=== PATIENT | male | born 1975 | race Caucasian/White ===

== ENCOUNTER 2016-11-12 20:05 | Emergency (ER) | payer BC, OTHER ==
[~2016-11-12] VITALS: Ht 182.9 cm; Wt 103.1 kg
[~2016-11-12 20:05] MED LIST: DPTSTI200 INJ; LXP10 PO; OMEG10007 PO; VITAMIN B12 PO
[2016-11-12 20:07] VITALS: TEMP 36.7; Ht 182.9 cm; Wt 103.1 kg
[2016-11-12] MEDS ORDERED: SODIUM CHLORIDE 0.9% 1000ML 1,000 ML IV STA (20:23)
[2016-11-12] MEDS ORDERED: MoRPHine SULFATE 4 MG/ML 1 ML CARP\\VIAL IV STA ×2 (20:23→22:01)
[2016-11-12] MEDS ORDERED: SODIUM CHLORIDE 0.9% 1000ML 1,000 ML IV ONE (20:23)
[2016-11-12] MEDS ORDERED: ONDANSETRON INJ 2 MG/ML 2 ML VIAL IV STA (20:23)
[2016-11-12 20:36] LABS: URINE APPEARANCE CLEAR (CLEAR); URINE BILIRUBIN NEG (NEG); URINE NITRITE NEG (NEG); URINE SPECIFIC GRAVITY 1.017 (1.000-1.030); UROBILINOGEN NEG (NEG)
[2016-11-12 20:46] LABS: BASO % 0.3 %; BASO ABS # 0.02 K/uL (0-0.2); COMPLETE YES; EOS % 6.8 %; IG% 0.2 %; LYMPH ABS # 2.31 K/uL (1.2-3.4); MEAN CELL VOLUME 82.7 fL (80-100); MEAN CORPUSCULAR HEMOGLOBIN 28.1 pg (25-34); MONO % 6.7 %; PLATELET COUNT 200 K/uL (130-400); RED BLOOD COUNT 5.08 M/uL (4.7-6.1)
[2016-11-12 20:49] LABS: MANUAL MICROSCOPIC REQUIRED? NO; REVIEW REQ? NO; URINE COLOR DK YELLOW
--- NOTE | 2016-11-12 20:55 | EMERGENCY ROOM VISIT NOTE ---
History Report prepared by Colleen: Giacomo Lizarraga Under the Supervision of: Dr. Mckinley Desouza M.D. First contact with patient: 20:09 Chief Complaint: FLANK PAIN Stated Complaint: R SIDE PAIN AND BLOOD IN URINE History of Present Illness The patient is a 41 year old male who presents to the Emergency Room with complaints of constant, worsening, right-sided abdominal pain beginning 5 days ago. He currently rates his discomfort a 10/10 in severity. The patient states that his pain radiates to his lower back, but is worse in his abdomen. He states that his urine has gross amounts of blood in it, but he denies dysuria. The patient also denies trauma, testicular pain, and pain with walking. He reports that he has a history of kidney stones, and this feels different. The patient notes that he can typically pass them, and his pain starts in his back first, not abdomen. He reports that he passed a kidney stone six months ago. The patient states that he still has his appendix, and denies a history of hypertension. 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 Source of History: patient, spouse/significant other Onset: 5 days ago Position: abdomen (right side) Symptom Intensity: 10/10 Timing: constant, worsening Associated Symptoms: + back pain Note: Associated symptoms: gross amounts of blood in urine Denies dysuria, trauma, testicular pain, and pain with walking. Review of Systems See HPI for pertinent positives & negatives. A total of 10 systems reviewed and were otherwise negative. Past Medical & Surgical Medical Problems: (1) Calculus Of Ureter Old medical records were reviewed. Nurse's notes were reviewed and I agree with. Family History Patient reports no known family medical history. Social History Smoking Status: Never Smoker Alcohol Use: occasionally Marital Status: Housing Status: lives with family Current/Historical Medications Scheduled Tamsulosin Hcl (Flomax), 0.4 MG PO QD Scheduled PRN Oxycodone Immediate Rel Tab (Roxicodone Ir), 1-2 TAB PO Q4H PRN for Severe Pain Allergies Coded Allergies: Rofecoxib (Verified Allergy, Severe, THROAT SWELLS, 02/15/14) Ketorolac (Verified Adverse Reaction, Mild, NAUSEA, VOMITING, 02/15/14) Physical Exam Vital Signs Date Time Temp Pulse Resp B/P (MAP) Pulse Ox O2 Delivery O2 Flow Rate FiO2 11/12/16 23:22 58 18 106/63 97 11/12/16 21:44 56 16 127/72 98 Room Air 11/12/16 20:07 36.7 62 18 148/96 100 Room Air Physical Exam General: Well developed well nourished in no acute distress, breathing comfortably on room air. Normal speech HEENT: Normal cephalic atraumatic. Pupils are equal round and reactive to light. Sclerae anicteric. Extraocular movements are intact. Oropharynx is pink with moist mucous membranes. No swelling of the mouth lips or tongue. Neck: Supple with a midline trachea. No meningeal signs or stiffness, no JVD or bruits. No Stridor. Chest: Clear to auscultation bilaterally. No wheezes or rhonchi. No increased work of breathing. Heart: regular rate and rhythm. Abdomen: Soft, nondistended without rebound guarding or rigidity. Right lower quadrant tenderness to palpation Extremities: No cyanosis clubbing or edema. No calf tenderness or assymetry Spine/Back. Non tender to palpation. No CVA tenderness Skin: Good turgor without rashes. Neurologic exam: Cranial nerves two through 12 are intact. Motor and sensation are intact and symmetrical throughout. Medical Decision & Procedures ER Provider Diagnostic Interpretation: CT results as stated below per my review and radiologist interpretation: ABDOMEN AND PELVIS CT WITHOUT CONTRAST CT DOSE: 1470.02 mGy.cm HISTORY: Flank pain eval for stone, appy TECHNIQUE: Multiaxial CT images of the abdomen and pelvis were performed without the use of intravenous and oral contrast according to the standard department stone protocol. COMPARISON STUDY: 08/15/2011. FINDINGS: liver spleen and pancreas appear unremarkable. Left kidney demonstrates several nonobstructing calcifications. Right kidney also similar to show several nonobstructing calcifications. There is mild right hydroureteronephrosis. There is a 5 mm obstructing calculus at the distal right ureteral level at approximately level of the mid sacrum. There are components of chronic sigmoid diverticulosis. There is no evidence for acute diverticulitis. Bowel pattern is considered nonobstructive. IMPRESSION: 1. Obstructing calculus distal right ureter measuring 5 mm. 2. This is at the approximate level of the mid sacrum. 3. Several additional nonobstructing renal calcifications bilaterally. 4. Chronic sigmoid diverticulosis. Electronically signed by: Young Fernandez M.D. 11/12/2016 9:28 PM Dictated Date/Time: 11/12/2016 9:24 PM Laboratory Results 11/12/16 20:32 Red Blood Count 5.08, Mean Corpuscular Volume 82.7, Mean Corpuscular Hemoglobin 28.1, Mean Corpuscular Hemoglobin Concent 34.0, Mean Platelet Volume 11.0, Neutrophils (%) (Auto) 51.0, Lymphocytes (%) (Auto) 35.0, Monocytes (%) (Auto) 6.7, Eosinophils (%) (Auto) 6.8, Basophils (%) (Auto) 0.3, Neutrophils # (Auto) 3.37, Lymphocytes # (Auto) 2.31, Monocytes # (Auto) 0.44, Eosinophils # (Auto) 0.45, Basophils # (Auto) 0.02 11/12/16 20:32 Test 11/12/16 20:20 11/12/16 20:32 Urine Color DK YELLOW Urine Appearance CLEAR (CLEAR) Urine pH 6.0 (4.5-7.5) Urine Specific [place] 1.017 (1.000-1.030) Urine Protein NEG (NEG) Urine Glucose (UA) NEG (NEG) Urine Ketones NEG (NEG) Urine Occult Blood 3+ (NEG) Urine Nitrite NEG (NEG) Urine Bilirubin NEG (NEG) Urine Urobilinogen NEG (NEG) Urine Leukocyte Esterase SMALL (NEG) Urine WBC (Auto) 5-10 /hpf (0-5) Urine RBC (Auto) >30 /hpf (0-4) Urine Hyaline Casts (Auto) 1-5 /lpf (0-5) Urine Epithelial Cells (Auto) 10-20 /lpf (0-5) Urine Bacteria (Auto) NEG (NEG) White Blood Count 6.60 K/uL (4.8-10.8) Red Blood Count 5.08 M/uL (4.7-6.1) Hemoglobin 14.3 g/dL (14.0-18.0) Hematocrit 42.0 % (42-52) Mean Corpuscular Volume 82.7 fL (80-100) Mean Corpuscular Hemoglobin 28.1 pg (25-34) Mean Corpuscular Hemoglobin Concent 34.0 g/dl (32-36) Platelet Count 200 K/uL (130-400) Mean Platelet Volume 11.0 fL (7.4-10.4) Neutrophils (%) (Auto) 51.0 % Lymphocytes (%) (Auto) 35.0 % Monocytes (%) (Auto) 6.7 % Eosinophils (%) (Auto) 6.8 % Basophils (%) (Auto) 0.3 % Neutrophils # (Auto) 3.37 K/uL (1.4-6.5) Lymphocytes # (Auto) 2.31 K/uL (1.2-3.4) Monocytes # (Auto) 0.44 K/uL (0.11-0.59) Eosinophils # (Auto) 0.45 K/uL (0-0.5) Basophils # (Auto) 0.02 K/uL (0-0.2) RDW Standard Deviation 37.5 fL (36.4-46.3) RDW Coefficient of Variation 12.5 % (11.5-14.5) Immature Granulocyte % (Auto) 0.2 % Immature Granulocyte # (Auto) 0.01 K/uL (0.00-0.02) Anion Gap 9.0 mmol/L (3-11) Est Creatinine Clear Calc Drug Dose 107.5 ml/min Estimated GFR () 94.8 Estimated GFR (Non- 81.8 BUN/Creatinine Ratio 18.7 (10-20) Calcium Level 8.5 mg/dl (8.5-10.1) Total Bilirubin 0.4 mg/dl (0.2-1) Direct Bilirubin 0.1 mg/dl (0-0.2) Aspartate Amino Transf (AST/SGOT) 18 U/L (15-37) Alanine Aminotransferase (ALT/SGPT) 20 U/L (12-78) Alkaline Phosphatase 45 U/L (45-117) Total Protein 6.6 gm/dl (6.4-8.2) Albumin 3.5 gm/dl (3.4-5.0) Lipase 187 U/L (73-393) Laboratory studies as stated above per my review. Medications Administered Medications (Trade) Dose Ordered Sig/Babatunde Route Start Time Stop Time Status Last Admin Dose Admin Sodium Chloride 1,000 ml @ 999 mls/hr Q1H1M STAT IV 11/12/16 20:23 11/12/16 21:23 DC 11/12/16 20:35 999 MLS/HR Sodium Chloride 1,000 ml @ 200 mls/hr Q5H ONCE IV 11/12/16 20:23 11/12/16 23:57 DC 11/12/16 20:23 200 MLS/HR Morphine Sulfate (MoRPHine SULFATE INJ) 4 mg NOW STAT IV 11/12/16 20:23 11/12/16 20:24 DC 11/12/16 20:35 4 MG Ondansetron HCl (Zofran Inj) 4 mg NOW STAT IV 11/12/16 20:23 11/12/16 20:24 DC 11/12/16 20:35 4 MG Morphine Sulfate (MoRPHine SULFATE INJ) 4 mg NOW STAT IV 11/12/16 22:01 11/12/16 22:02 DC 11/12/16 22:08 4 MG Tamsulosin HCl (Flomax Cap) 0.4 mg NOW ONCE PO 11/12/16 22:15 11/12/16 22:16 DC 11/12/16 22:08 0.4 MG ED Course 2020: Past medical records reviewed. The patient was evaluated in room C11B, and a complete history and physical examination were performed. 2022: Ordered Zofran Inj 4mg IV, Morphine Sulfate 4mg IV, Sodium Chloride 1000 ml @ 200 mls/hr IV, Sodium Chloride 1000 ml @ 999 mls/hr IV 0: I reevaluated the patient and informed him of his exam findings. 2200: Ordered Morphine Sulfate 4mg IV 3: I reevaluated the patient. He would like one more dose of pain medication before going home. 5: Ordered Oxycodone HCl 1 homepack PO, Flomax Cap 0.4mg PO 2300: Upon reevaluation, the patient is resting and in no distress. I discussed the new results and treatment plan with him. He verbalized agreement of the treatment plan. The patient will be discharged home when he receives his medication. 0: Ordered Oxycodone 1 homepack PO, Flomax Cap 0.4mg PO Medical Decision Differential diagnosis includes: kidney stones, UTI, appendicitis, electrolyte metabolic abnormality, infection Medication Reconciliation: I attest that I have personally reviewed the patient' s current medication list. Blood Pressure Screening: Patient was found to have a slightly elevated blood pressure due to circumstances. I do not believe that the patient requires hypertension monitoring. This patient comes in as described above. He's been having pain on the right side of the abdomen. He has kidney stones a feels like this is different although he does have blood in his urine. He denies any trauma. He's had no fever or chills. IV access established and hydrated with IV normal saline. He was given morphine 4 mg IV and Zofran 4 mg IV. This helped but he did require additional 4 mg morphine IV. He was resting comfortably after this. Urinalysis shows blood but no definite infection and is a suboptimal specimen. He has no acute electrolyte or metabolic abnormalities. CAT scan shows a 5 mm distal stone with some hydro. No other acute abnormality seen. He should rest and drink plenty of fluids and follow-up with his urologist. He was given Flomax. And will go home with Flomax. He can also use for pain ibuprofen 400 mg every 6 hours he has done well with this before. For breakthrough pain use OxyIR 5 mg, one or 2 pills every 4-6 hours as needed. He was warned that OxyIR could make him drowsy do not take before drinking, driving, working. The patient and his were happy with the plan he was discharged to home. Impression Primary Impression: Kidney stone Additional Impressions: Right flank pain Right sided abdominal pain Scribe Attestation The scribe's documentation has been prepared under my direction and personally reviewed by me in its entirety. I confirm that the note above accurately reflects all work, treatment, procedures, and medical decision making performed by me. Departure Information Dispostion Home / Self-Care Prescriptions Tamsulosin Hcl (FLOMAX) 0.4 Mg Cap 0.4 MG PO QD, #14 CAP Prov: Mckinley Desouza M.D. 11/12/16 Oxycodone Immediate Rel Tab (ROXICODONE IR) 5 Mg Tab 1-2 TAB PO Q4H Y for Severe Pain, #24 TAB Prov: Mckinley Desouza M.D. 11/12/16 Referrals Christiane Valdez D.O. (PCP) Forms HOME CARE DOCUMENTATION FORM, IMPORTANT VISIT INFORMATION Patient Instructions My [facility] Additional Instructions Rest Drink plenty of fluids Use ibuprofen 400 mg every 6 hours, take with food For breakthrough pain, may use OxyIR 5 mg, one or 2 pills every 4-6 hours as needed OxyIR may make you drowsy and do not take before drinking, driving, working. Use Flomax once a day. Return if: Increasing pain, worsening of symptoms, fever or chills, any new problems or concerns Follow-up with your doctor or urologist Dr. Rai on Monday for recheck or return over the weekend if symptoms worsen Problem Qualifiers
[2016-11-12 21:02] LABS: BUN/CREATININE RATIO 18.7 (10-20); CREATININE 1.1 mg/dl (0.60-1.40)
--- NOTE | 2016-11-12 21:29 | DIAGNOSTIC IMAGING REPORT ---
ABDOMEN AND PELVIS CT WITHOUT CONTRAST CT DOSE: 1470.02 mGy.cm HISTORY: Flank pain eval for stone, appy TECHNIQUE: Multiaxial CT images of the abdomen and pelvis were performed without the use of intravenous and oral contrast according to the standard department stone protocol. COMPARISON STUDY: 08/15/2011. FINDINGS: liver spleen and pancreas appear unremarkable. Left kidney demonstrates several nonobstructing calcifications. Right kidney also similar to show several nonobstructing calcifications. There is mild right hydroureteronephrosis. There is a 5 mm obstructing calculus at the distal right ureteral level at approximately level of the mid sacrum. There are components of chronic sigmoid diverticulosis. There is no evidence for acute diverticulitis. Bowel pattern is considered nonobstructive. IMPRESSION: 1. Obstructing calculus distal right ureter measuring 5 mm. 2. This is at the approximate level of the mid sacrum. 3. Several additional nonobstructing renal calcifications bilaterally. 4. Chronic sigmoid diverticulosis. Electronically signed by: Young Fernandez M.D. 11/12/2016 9:28 PM Dictated Date/Time: 11/12/2016 9:24 PM
[2016-11-12 22:15] LABS: CALCIUM 8.5 mg/dl (8.5-10.1)
[2016-11-12] MEDS ORDERED: TAMSULOSIN HCL 0.4 MG CAP PO ONE ×2 (22:15→23:30)
[2016-11-12] MEDS ORDERED: OXYCODONE IR HOME PACK PO ONE ×2 (22:15→23:30)
[2016-11-12] MEDS ORDERED: TAMS0.4C38 PO (22:21)
[2016-11-12] MEDS ORDERED: OXYC1TAB3 PO (22:21)
[2016-11-12 23:22] VITALS: BP 106/63; PULSE 58; O2SAT 97
== END 2016-11-12 23:19 | disposition home or self-care (01) ==
LOC: C.EDB 20:06 → C.EDC 23:19
DX: N20.0 Calculus of kidney (principal); R10.84 Generalized abdominal pain

== ENCOUNTER 2024-04-22 09:01 | Observation (INO) ==
--- NOTE | 2024-04-22 09:33 | Emergency Department Note ---
Impression & Plan Acute pain of left foot ED Provider Note ED Provider Note NAME: FIDELIA REYES Jr AGE:48 SEX: Male : 1975 ARRIVES VIA: Private vehicle INFORMANT: Patient ED PROVIDER(s): Amber Casiano DO CHIEF COMPLAINT: Worsening pain of the left foot/great toe HPI: This is a 48-year-old male presents emergency department due to concern for worsening pain of the left foot particularly in the area of the first MTP. Patient states he had been having intermittent pain for approximately a month however has been slowly getting worse particularly over the last 1 to 2 weeks. He was initially seen at [facility] and underwent an x-ray and there was some suspicion for possible gout. He was started on prednisone at 80 mg. He states the steroids did not help. He is otherwise been taking Tylenol and ibuprofen [id number]. He was seen here on Monday and underwent CT of the foot as well as labs. They state he was tested for Lyme additionally. No history of rheumatologic disorders. No recent trauma or injury. He denies any other joint pains. He denies fevers or chills. On Monday they were given oxycodone additionally instructed to follow-up with orthopedics. They state they presented to the [facility] walk-in orthopedic clinic this morning and were dismissed by the PA that they saw so they came back here. Patient complains of accompanying paresthesias in the left foot. They state many years ago the right foot was aspirated due to suspicion of gout and was negative for crystals. PAST MEDICAL HISTORY:See Below PAST SURGICAL HISTORY:See Below FAMILY HISTORY:See Below SOCIAL HISTORY:See Below HOME MEDICATIONS:See Below ALLERGIES:See Below VITALS:See Below PHYSICAL EXAMINATION: GENERAL: alert, well appearing, well nourished, no distress, non-toxic EYE EXAM: normal conjunctiva, PERRL and EOM's grossly intact OROPHARYNX: no exudate, no erythema, lips, buccal mucosa, and tongue normal and mucous membranes are moist NECK: supple, no nuchal rigidity, no adenopathy, non-tender LUNGS: Clear to auscultation. Normal chest wall mechanics, no w/r/r HEART: no murmurs, S1 normal and S2 normal ABDOMEN: abdomen soft, non-tender, normo-active bowel sounds, no masses, no rebound or guarding. BACK: Back is symmetrical on inspection and there is no deformity, no midline tenderness, no CVA tenderness. SKIN: no rashes, petechiae, orbruising UPPER EXTREMITIES: upper extremities are grossly normal. FROM, nml pulses b/l. LOWER EXTREMITIES: No pitting edema. FROM, nml pulses b/l. Left first MTP edematous with mild overlying erythema, markedly tender to even light touch, edema noted to the plantar aspect of the foot additionally. NEURO EXAM: Normal sensorium, cranial nerves II-XII grossly intact, normal speech, no facial droop,nogross weakness of arms, no gross weakness of legs. Gross sensation intact. No ataxia. Vital Signs: reviewed and remarkable Differential Diagnosis: Trauma, septic arthritis, tickborne illness, gout, pseudogout, gonorrhea, arthritis, as well as others were considered MEDICAL DECISION MAKING: This is a 48-year-old male presents emergency department due to worsening left foot pain. Patient seen and evaluated previously both at [facility] as well as at at our facility a few days ago. He was afebrile and vital signs stable. He has been using multiple medications for pain at home without any relief. Labs drawn and sent, IV established, patient monitored on telemetry. He was given IV Tylenol and IV morphine with some improvement. Repeat x-rays and CT not performed as these were just done within the last few days. Uric acid was noted to be slightly elevated. On review of prior records, he does have a prior notation of gout from his PCP and previously elevated uric acid levels. He is not currently taking any gout medication. He did take prednisone last week without any improvement. Mild overlying erythema at the first MTP on the left foot was outlined with a sterile marking pen as a precaution. No leukocytosis or elevation of the other inflammatory markers noted. I do not suspect septic arthritis. I do not suspect occult trauma. I think gouty arthropathy more likely. I do not feel pain is from previously noted subchondral bone cyst from the CT several days ago. Given persistent uncontrolled pain and failure of outpatient management, case discussed with the hospitalist team for additional evaluation and management and likely specialist consultation. Patient was given first dose of colchicine in the emergency department. Consultation(s): 1218: Discussed with Jazmine Fuentes hospitalist team, for additional evaluation and management. ER Treatment Provided: See below Diagnostics Interpreted By Me: -Cardiac Monitoring: An order was placed for continuous cardiac monitoring. The monitor shows a rate of 62 with normal sinus rhythm. -Laboratory studies: As stated above and show below. 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 (Acute) Obstructive sleep apnea Nocturnal hypoxemia Obesity Gout Medical History (Updated 04/22/24 @ 12:30 by Montserrat Lazar PA-C) Nephrolithiasis Hyperuricemia History of COVID-19 DX'D EARLY 07/2020 DR HOOD'S OFFICE [facility]-FATIGUE, SOB, SLIGHT FEVER-RECOVERED AT HOME-SYNPTOMS RESOLVED Sleep apnea CPAP Hyperlipidemia HX BORDERLINE-VOLUNTARY WT LOSS 60 LBS OVER PAST 6 MONTHS Undiagnosed cardiac murmurs PALPITATIONS NO CARDIOLOGY Panic disorder Hypogonadism in male EMIL (generalized anxiety disorder) Recurrent major depression in full remission Surgical History (Updated 04/22/24 @ 12:30 by Montserrat Lazar PA-C) Status post arthroscopy of knee Right and Left knee History of anesthesia reaction GETS AGGRESSIVE WAKING UP-MOVES AROUND ALOT History of lithotripsy History of removal of testicle Left testicle removed S/P INJURY Family History Father Diabetes Heart disease Hypertension Kidney stones Other COPD (chronic obstructive pulmonary disease) Cancer Myocardial infarction Social History Smoking Status: Never smoker Tobacco Type: Cigarettes Second Hand Exposure: Yes; Do You Dip or Chew Tobacco: Yes (1 CAN PER 2 DAYS); Hx Alcohol Use: Yes Alcohol type: hard liquor Hx Substance Use: No Preferred Language: Sami Communication Ability: Effective Throw Out Clerk Required: No Beliefs That Will Affect Care: None marital status: Current Living Situation: Spouse current occupational status: employed current occupation: [employer] Other Information That Helps Us Care for You: No Feels Safe at Home: Yes Safety Concerns: Feels Safe At This Time Diet: regular Assistive Devices: Cane and Oxygen - at Night Allergies Allergies Allergy/AdvReac Type Severity Reaction Status Date / Time rofecoxib Allergy Severe THROAT Verified 10/25/23 08:21 SWELLS ketorolac AdvReac Mild NAUSEA, Verified 10/25/23 08:21 VOMITING Home Meds Home Medications Medication Instructions Recorded Confirmed oxycodone 5 mg tablet 5 mg PO Q4H PRN Pain 04/22/24 04/22/24 Results & Data (ED) Vital Signs Vital Signs - 24 hr 04/22/24 09:07 04/22/24 09:58 04/22/24 10:30 Temperature 36.3 C L Temperature Source Oral Pulse Rate 68 65 58 L Pulse Rate [Apical] Pulse Rate from SpO2 Sensor 58 L Pulse Rhythm [Apical] Pulse Strength [Apical] Respiratory Rate 20 13 Respiratory Effort / Characteristics Non-Labored Spontaneous Respiratory Depth Normal Respiratory Pattern Regular Blood Pressure 169/106 H 119/65 Blood Pressure [Left Arm] Blood Pressure Mean 127 72 Blood Pressure Mean [Left Arm] Pulse Oximetry 99 99 Oxygen Delivery Method Room Air Nasal Cannula Oxygen Flow Rate 2 Sepsis Recent Fever Within 48 Hours No Sepsis New/Unexplained Change in Mental Status N/A Sepsis Action Taken by Nursing No Action Required 04/22/24 11:01 04/22/24 12:30 04/22/24 12:30 Temperature Temperature Source Pulse Rate 60 54 L Pulse Rate [Apical] 62 Pulse Rate from SpO2 Sensor 61 53 L Pulse Rhythm [Apical] Regular Pulse Strength [Apical] Normal Respiratory Rate 14 16 18 Respiratory Effort / Characteristics Non-Labored Respiratory Depth Normal Respiratory Pattern Regular Blood Pressure 143/98 H 127/81 Blood Pressure [Left Arm] 127/81 Blood Pressure Mean 103 85 Blood Pressure Mean [Left Arm] 96 Pulse Oximetry 99 99 100 Oxygen Delivery Method Nasal Cannula Nasal Cannula Nasal Cannula Oxygen Flow Rate 2 2 2 Sepsis Recent Fever Within 48 Hours Sepsis New/Unexplained Change in Mental Status Sepsis Action Taken by Nursing 04/22/24 13:00 Temperature Temperature Source Pulse Rate 52 L Pulse Rate [Apical] Pulse Rate from SpO2 Sensor 52 L Pulse Rhythm [Apical] Pulse Strength [Apical] Respiratory Rate 13 Respiratory Effort / Characteristics Respiratory Depth Respiratory Pattern Blood Pressure 126/87 Blood Pressure [Left Arm] Blood Pressure Mean 96 Blood Pressure Mean [Left Arm] Pulse Oximetry 100 Oxygen Delivery Method Nasal Cannula Oxygen Flow Rate 2 Sepsis Recent Fever Within 48 Hours Sepsis New/Unexplained Change in Mental Status Sepsis Action Taken by Nursing Laboratory Data 04/22/24 09:35 04/22/24 09:35 Lab Results 04/22/24 04/22/24 Range/Units 09:35 10:32 WBC 10.69 (4.8-10.8) K/ul RBC 5.43 (4.70-6.10) M/uL Hgb 15.1 (14.0-18.0) g/dl Hct 46.4 (42.0-52.0) % MCV 85.5 (80.0-100.0) fL MCH 27.8 (25.0-34.0) pg MCHC 32.5 (32.0-36.0) g/dL RDW Std Deviation 41.6 (36.4-46.3) fL RDW Coeff of Tiffany 13.3 (11.5-14.5) % Plt Count 218 (130-400) K/uL MPV 11.3 (9.4-12.4) fL Immature Gran % (Auto) 2.2 % Neut % (Auto) 63.8 % Lymph % (Auto) 22.2 % Phillips % (Auto) 8.0 % Eos % (Auto) 3.3 % Baso % (Auto) 0.5 % Neut # (Auto) 6.83 H (1.40-6.50) K/uL Lymph # (Auto) 2.37 (1.20-3.40) K/uL Phillips # (Auto) 0.86 H (0.11-0.59) K/uL Eos # (Auto) 0.35 (0.00-0.50) K/uL Baso # (Auto) 0.05 (0.00-0.20) K/uL Immature Gran # (Auto) 0.23 H (0.01-0.20) K/uL ESR 10 (0-20) mm/hr Sodium 140 (136-145) mmol/L Potassium 4.3 (3.5-5.1) mmol/L Chloride 105 (98-107) mmol/L Carbon Dioxide 30 (21-32) mmol/L Anion Gap 5 (3-11) BUN 25 H (6-23) mg/dl Creatinine 1.01 (0.6-1.4) mg/dl Est Cr Clr Drug Dosing 106.5 ml/min eGFR 90.60 BUN/Creatinine Ratio 24.8 H (10-20) Glucose 92 (70-99(Fasting)) mg/dl Uric Acid 7.3 H (2.6-7.2) mg/dl Calcium 8.9 (8.6-10.3) mg/dl Total Bilirubin 0.6 (0.2-1.0) mg/dl AST 12 L (13-39) U/L ALT 8 (7-52) U/L Alkaline Phosphatase 37 (34-104) U/L C-Reactive Protein < 0.50 (0-0.5) mg/dl Total Protein 6.4 (6.0-8.3) gm/dl Albumin 3.7 (3.4-5.0) gm/dl Globulin 2.7 (2.5-4.0) gm/dl Albumin/Globulin Ratio 1.4 (0.9-2) Urine Color Yellow Urine Appearance Clear (Clear) Urine pH 6.0 (4.5-7.5) Ur Specific [place] 1.019 (1.000-1.030) Urine Protein Trace H (Negative) Urine Glucose (UA) Negative (Negative) Urine Ketones Negative (Negative) Urine Blood 1+ H (Negative) Urine Nitrite Negative (Negative) Urine Bilirubin Negative (Negative) Urine Urobilinogen Negative (Negative) Ur Leukocyte Esterase 1+ H (Negative) Urine WBC (Auto) 11-20 H (0-5) /hpf Urine RBC (Auto) 6-10 H (0-2) /hpf U Hyaline Cast (Auto) 3-5 H (0-2) /lpf U Epithel Cells (Auto) 0-2 (0-2) /hpf Urine Bacteria (Auto) None Seen (None Seen) Lyme Disease Screen Negative (Negative) Administered Medications Acetaminophen (Ofirmev) 1,000 mg in 100 mls @ 400 mls/hr IV Q8H [facility] Stop: 04/25/24 17:29 Last Admin: 04/22/24 16:52 Dose: 400 mls/hr Documented By: [facility] Oxycodone HCl (Oxycodone Hcl Ir 5 Mg Tab (Immediate Release)) 5 mg PO Q4H PRN PRN Reason: Moderate Pain (Scale 4, 5, 6) Stop: 05/06/24 15:21 Last Admin: 04/22/24 16:03 Dose: 5 mg Documented By: [facility] Discontinued Medications Colchicine (Colchicine 0.6 Mg Tab) 1.2 mg PO NOW ONE Stop: 04/22/24 10:56 Last Admin: 04/22/24 11:22 Dose: 1.2 mg Documented By: SRL Colchicine (Colchicine 0.6 Mg Tab) 0.6 mg PO NOW ONE Stop: 04/22/24 13:28 Last Admin: 04/22/24 14:20 Dose: 0.6 mg Documented By: SRL Sodium Chloride (Nss) 1,000 mls @ 999 mls/hr IV .Q1H1M ONE Stop: 04/22/24 10:27 Last Infusion: 04/22/24 10:35 Dose: Infused Documented By: Admin: 04/22/24 09:47 Dose: 999 mls/hr Documented By: SRL Famotidine (Pepcid 20mg Iv Push) 20 mg in 5 mls @ 2.5 mls/min IV NOW STA Stop: 04/22/24 09:28 Last Admin: 04/22/24 09:47 Dose: 2.5 mls/min Documented By: SRL Acetaminophen (Ofirmev) 1,000 mg in 100 mls @ 400 mls/hr IV NOW STA Stop: 04/22/24 09:41 Last Infusion: 04/22/24 10:15 Dose: Infused Documented By: Admin: 04/22/24 09:47 Dose: 400 mls/hr Documented By: SRL Methylprednisolone 40 mg/ (Syringe) 0.64 mls @ 1.5 mls/min IV NOW STA Stop: 04/22/24 15:37 Last Admin: 04/22/24 16:06 Dose: 1.5 mls/min Documented By: CHELO Morphine Sulfate (Morphine Sulfate 4 Mg/Ml 1 Ml Carp\Vial) 4 mg IV NOW STA Stop: 04/22/24 09:28 Last Admin: 04/22/24 09:48 Dose: 4 mg Documented By: SRL Morphine Sulfate (Morphine Sulfate 4 Mg/Ml 1 Ml Carp\Vial) 4 mg IV NOW STA Stop: 04/22/24 13:28 Last Admin: 04/22/24 14:20 Dose: 4 mg Documented By: SRL Ondansetron HCl (Ondansetron Inj 2 Mg/Ml 2 Ml Vial) 4 mg IV NOW STA Stop: 04/22/24 09:28 Last Admin: 04/22/24 09:47 Dose: 4 mg Documented By: SRL Discharge Plan Visit Data Chief Complaint: Swelling/Edema to Extremity Stated Complaint: EDEMA/PAIN IN LT FOOT, CYSTS IN BONE OF BIG TOE ED Provider: Amber Casiano Discharge Problem: Acute pain of left foot Patient Disposition: Admitted As Inpatient Discharge Instructions Interventions: ED Discharge Assessment Last Done: 04/22/24 15:00
[2024-04-22] MEDS: SODIUM CHLORIDE 0.9% 1,000 ML IV ONE (09:47)
[2024-04-22] MEDS: ACETAMINOPHEN 1,000 MG/100 ML VIAL IV STA (09:47)
[2024-04-22] MEDS: FAMOTIDINE 20MG IV PUSH 20 MG/5 ML SYR IV STA (09:47)
[2024-04-22] MEDS: ONDANSETRON INJ 2 MG/ML 2 ML VIAL IV STA (09:47)
[2024-04-22] MEDS: MoRPHine SULFATE 4 MG/ML 1 ML CARP\\VIAL IV STA ×2 (09:48→14:20)
[2024-04-22 10:16] LABS: Basophils # (auto) 0.05 K/uL (0.00-0.20); Basophils % (auto) 0.5 %; Eosinophils # (auto) 0.35 K/uL (0.00-0.50); Eosinophils % (auto) 3.3 %; Hematocrit (blood only) 46.4 % (42.0-52.0); Hemoglobin 15.1 g/dl (14.0-18.0); Immature Granulocytes # (auto) 0.23 K/uL (0.01-0.20); Immature Granulocytes % (auto) 2.2 %; Lymphocytes # (auto) 2.37 K/uL (1.20-3.40); Lymphocytes % (auto) 22.2 %; Mean Corpuscular Hemoglobin 27.8 pg (25.0-34.0); Mean Corpuscular Hgb Conc 32.5 g/dL (32.0-36.0); Mean Corpuscular Volume 85.5 fL (80.0-100.0); Mean Platelet Volume 11.3 fL (9.4-12.4); Monocytes # (auto) 0.86 K/uL (0.11-0.59); Neutrophils # (auto) 6.83 K/uL (1.40-6.50); Neutrophils % (auto) 63.8 %; Platelet Count 218 K/uL (130-400); RDW Coefficient of Variation 13.3 % (11.5-14.5); RDW Standard Deviation 41.6 fL (36.4-46.3); Red Blood Count 5.43 M/uL (4.70-6.10); White Blood Count 10.69 K/ul (4.8-10.8)
[2024-04-22 10:18] LABS: Alanine Aminotransferase 8 U/L (7-52); Albumin Globulin Ratio 1.4 (0.9-2); Albumin Level 3.7 gm/dl (3.4-5.0); Alkaline Phosphatase 37 U/L (34-104); Anion Gap 5 (3-11); Aspartate Aminotransferase 12 U/L (13-39); BUN Creatinine Ratio 24.8 (10-20); Bilirubin,Total 0.6 mg/dl (0.2-1.0); Blood Urea Nitrogen 25 mg/dl (6-23); C Reactive Protein < 0.50 mg/dl (0-0.5); Calcium 8.9 mg/dl (8.6-10.3); Carbon Dioxide 30 mmol/L (21-32); Chloride 105 mmol/L (98-107); Creatinine Clr Calc Pharmacy 106.5 ml/min; Globulin 2.7 gm/dl (2.5-4.0); Glucose 92 mg/dl (70-99(Fasting)); Potassium 4.3 mmol/L (3.5-5.1); Sodium 140 mmol/L (136-145); Total Protein 6.4 gm/dl (6.0-8.3); Uric Acid 7.3 mg/dl (2.6-7.2)
[2024-04-22 11:10] LABS: Appearance Urine Clear (Clear); Bacteria Urine Automated None Seen (None Seen); Bilirubin Urine Negative (Negative); Blood Urine 1+ (Negative); Color Urine Yellow; Epithelial Cell Urine Auto 0-2 /hpf (0-2); Glucose Urine UA Negative (Negative); Ketones Urine Negative (Negative); Leukocyte Esterase Urine 1+ (Negative); Nitrite Urine Negative (Negative); Protein Urine Trace (Negative); Specific Gravity Urine 1.019 (1.000-1.030); Urobilinogen Urine Negative (Negative)
[2024-04-22] MEDS: COLCHICINE 0.6 MG TAB PO ONE ×2 (11:22→14:20)
--- NOTE | 2024-04-22 12:25 | History & Physical Report ---
Date of Service April 22, 2024 Assessment & Plan (1) Acute pain of left foot: (2) Subchondral bone cyst: (3) Obstructive sleep apnea: (4) EMIL (generalized anxiety disorder): Plan This is a 48 y/o male with MARINO on CPAP, EMIL, history of episodic great toe pain thought secondary to gout, and other history as below who presents to the ED today with worsening pain in the left foot. Pt reports similar symptoms previously and has been told he likely has gout. Review of outpatient records show PCP previously prescribed allopurinol after last flare in the right foot in November but pt is not currently taking this and is unsure as to why. There is a reported aspiration that was negative for crystalline arthropathy several years ago, outpatient labs have been negative for rheumatoid factor. However, uric acid appears to have been persistently mild elevated back to 2017. Pt's pain with current episode has been uncontrolled with oxycodone, acetaminophen, and ibuprofen and did not improve with recent course of prednisone so he was referred for admission for further evaluation and pain control. #Left foot pain #Subchondral bone cyst on recent imaging - Observe in med surg - Colchicine started in the ED, will continue 0.6 mg BID - Scheduled acetaminophen, prn narcotics for breakthrough - Consult orthopedics for additional recommendations - Weightbearing as tolerated #MARINO - Pt uses CPAP at night - will order while admitted #EMIL - Not currently on medications for this, was on Effexor previously but reports no longer taking Pt seen and reviewed with collaborating physician, Dr. Maldonado. Plan of care discussed and as outlined above. Code status: full code DVT prophylaxis: Lovenox. Shaun Lazar PA-C History of Present Illness Chief Complaint: foot pain Primary Care Provider: Sathish Valdez, This is a 48 y/o male with MARINO on CPAP, EMIL, history of episodic great toe pain thought secondary to gout, and other history as below who presents to the ED today with worsening pain in the left foot. He reports that the current episode of pain started in mid-February - no specific inciting event. Pain is localized to the base of the 1st MTP joint but has radiated to 1st toe and to mid-foot at times. Pain is constant and sharp, has gradually increased in severity. The area is now swollen and exquisitely tender even to touch. Seen at [facility] ED one week ago and prescribed prednisone, seen in the ED at [facility] two days ago and prescribed oxycodone. However, pain continues to worsen with only brief partial relief with the medications. Pt is currently taking oxycodone 5 mg every 4 hours, acetaminophen 1000 mg every 8 hours alternating with ibuprofen 800 mg every 8 hours. Pt denies any prior injury to the area. Does not recall any rashes or open wounds. 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 He has been using crutches to ambulate for the last two days and is now having some pain in this knee and hip on the affected side because of how he is walking. He denies fevers, chiills, sweats, recent illness. No history of Lyme disease. Allergies Allergy/AdvReac Type Severity Reaction Status Date / Time rofecoxib Allergy Severe THROAT Verified 10/25/23 08:21 SWELLS ketorolac AdvReac Mild NAUSEA, Verified 10/25/23 08:21 VOMITING Home Medications Medication Instructions Recorded Confirmed Type oxycodone 5 mg tablet 5 mg PO Q4H PRN Pain 04/22/24 04/22/24 History Past Med/Surg History Problem List (Updated 04/22/24 @ 12:30 by Montserrat Lazar PA-C) Acute pain of left foot (Acute) Subchondral bone cyst (Acute) Osteoarthritis of first metatarsophalangeal joint (Acute) Obstructive sleep apnea Nocturnal hypoxemia Obesity Gout Medical History (Updated 04/22/24 @ 12:30 by Montserrat Lazar PA-C) Nephrolithiasis Hyperuricemia History of COVID-19 DX'D EARLY 07/2020 DR HOOD'S OFFICE [place]-FATIGUE, SOB, SLIGHT FEVER-RECOVERED AT HOME-SYNPTOMS RESOLVED Sleep apnea CPAP Hyperlipidemia HX BORDERLINE-VOLUNTARY WT LOSS 60 LBS OVER PAST 6 MONTHS Undiagnosed cardiac murmurs PALPITATIONS NO CARDIOLOGY Panic disorder Hypogonadism in male EMIL (generalized anxiety disorder) Recurrent major depression in full remission Surgical History (Updated 04/22/24 @ 12:30 by Montserrat Lazar PA-C) Status post arthroscopy of knee Right and Left knee History of anesthesia reaction GETS AGGRESSIVE WAKING UP-MOVES AROUND ALOT History of lithotripsy History of removal of testicle Left testicle removed S/P INJURY Family History Father Diabetes Heart disease Hypertension Kidney stones Other COPD (chronic obstructive pulmonary disease) Cancer Myocardial infarction Social History Smoking Status: Never smoker Tobacco Type: Cigarettes Second Hand Exposure: Yes; Do You Dip or Chew Tobacco: Yes (1 CAN PER 2 DAYS); Hx Alcohol Use: Yes Alcohol type: hard liquor Hx Substance Use: No Preferred Language: Burmese Communication Ability: Effective Assistant Front Desk Manager Required: No Beliefs That Will Affect Care: None marital status: Current Living Situation: Spouse current occupational status: employed current occupation: [employer] Other Information That Helps Us Care for You: No Feels Safe at Home: Yes Safety Concerns: Feels Safe At This Time Diet: regular Assistive Devices: Cane and Oxygen - at Night Review of Systems Review of Systems: All systems reviewed & are unremarkable except as noted in Subjective Physical Exam Physical Exam: General: awake, alert, NAD HEENT: no scleral icterus, moist oral mucosa Neck: supple, trachea midline Heart: RRR Lungs: CTA bilaterally Abdomen: soft, +BS Extremities: distal pulses intact and equal, left foot with tenderness from 1st MTP joint to tip of 1st toe and long medial foot to mid-foot area with associated swelling, mild erythema, no open wounds or ecchymosis noted Neurologic: OX3, moving all extremities, no focal deficits Results & Data Results & Data Vital Signs (Past 12 Hours) Vital Signs Temp Pulse Resp BP Pulse Ox O2 Del Method O2 Flow Rate 04/22/24 10:30 58 L 13 119/65 99 Nasal Cannula 2 04/22/24 09:58 65 04/22/24 09:07 36.3 C L 68 20 169/106 H 99 Room Air Laboratory Results Lab Results 04/22/24 04/22/24 Range/Units 09:35 10:32 WBC 10.69 (4.8-10.8) K/ul RBC 5.43 (4.70-6.10) M/uL Hgb 15.1 (14.0-18.0) g/dl Hct 46.4 (42.0-52.0) % MCV 85.5 (80.0-100.0) fL MCH 27.8 (25.0-34.0) pg MCHC 32.5 (32.0-36.0) g/dL RDW Std Deviation 41.6 (36.4-46.3) fL RDW Coeff of Tiffany 13.3 (11.5-14.5) % Plt Count 218 (130-400) K/uL MPV 11.3 (9.4-12.4) fL Immature Gran % (Auto) 2.2 % Neut % (Auto) 63.8 % Lymph % (Auto) 22.2 % [place] % (Auto) 8.0 % Eos % (Auto) 3.3 % Baso % (Auto) 0.5 % Neut # (Auto) 6.83 H (1.40-6.50) K/uL Lymph # (Auto) 2.37 (1.20-3.40) K/uL [place] # (Auto) 0.86 H (0.11-0.59) K/uL Eos # (Auto) 0.35 (0.00-0.50) K/uL Baso # (Auto) 0.05 (0.00-0.20) K/uL Immature Gran # (Auto) 0.23 H (0.01-0.20) K/uL ESR 10 (0-20) mm/hr Sodium 140 (136-145) mmol/L Potassium 4.3 (3.5-5.1) mmol/L Chloride 105 (98-107) mmol/L Carbon Dioxide 30 (21-32) mmol/L Anion Gap 5 (3-11) BUN 25 H (6-23) mg/dl Creatinine 1.01 (0.6-1.4) mg/dl Est Cr Clr Drug Dosing 106.5 ml/min eGFR 90.60 BUN/Creatinine Ratio 24.8 H (10-20) Glucose 92 (70-99(Fasting)) mg/dl Uric Acid 7.3 H (2.6-7.2) mg/dl Calcium 8.9 (8.6-10.3) mg/dl Total Bilirubin 0.6 (0.2-1.0) mg/dl AST 12 L (13-39) U/L ALT 8 (7-52) U/L Alkaline Phosphatase 37 (34-104) U/L C-Reactive Protein < 0.50 (0-0.5) mg/dl Total Protein 6.4 (6.0-8.3) gm/dl Albumin 3.7 (3.4-5.0) gm/dl Globulin 2.7 (2.5-4.0) gm/dl Albumin/Globulin Ratio 1.4 (0.9-2) Urine Color Yellow Urine Appearance Clear (Clear) Urine pH 6.0 (4.5-7.5) Ur Specific [place] 1.019 (1.000-1.030) Urine Protein Trace H (Negative) Urine Glucose (UA) Negative (Negative) Urine Ketones Negative (Negative) Urine Blood 1+ H (Negative) Urine Nitrite Negative (Negative) Urine Bilirubin Negative (Negative) Urine Urobilinogen Negative (Negative) Ur Leukocyte Esterase 1+ H (Negative) Urine WBC (Auto) 11-20 H (0-5) /hpf Urine RBC (Auto) 6-10 H (0-2) /hpf U Hyaline Cast (Auto) 3-5 H (0-2) /lpf U Epithel Cells (Auto) 0-2 (0-2) /hpf Urine Bacteria (Auto) None Seen (None Seen) Lyme Disease Screen Negative (Negative) Medications Administered Discontinued Medications Colchicine (Colchicine 0.6 Mg Tab) 1.2 mg PO NOW ONE Stop: 04/22/24 10:56 Last Admin: 04/22/24 11:22 Dose: 1.2 mg Documented By: SRL Sodium Chloride (Nss) 1,000 mls @ 999 mls/hr IV .Q1H1M ONE Stop: 04/22/24 10:27 Last Infusion: 04/22/24 10:35 Dose: Infused Documented By: Admin: 04/22/24 09:47 Dose: 999 mls/hr Documented By: SRL Famotidine (Pepcid 20mg Iv Push) 20 mg in 5 mls @ 2.5 mls/min IV NOW STA Stop: 04/22/24 09:28 Last Admin: 04/22/24 09:47 Dose: 2.5 mls/min Documented By: SRL Acetaminophen (Ofirmev) 1,000 mg in 100 mls @ 400 mls/hr IV NOW STA Stop: 04/22/24 09:41 Last Infusion: 04/22/24 10:15 Dose: Infused Documented By: Admin: 04/22/24 09:47 Dose: 400 mls/hr Documented By: SRL Morphine Sulfate (Morphine Sulfate 4 Mg/Ml 1 Ml Carp\Vial) 4 mg IV NOW STA Stop: 04/22/24 09:28 Last Admin: 04/22/24 09:48 Dose: 4 mg Documented By: BRIT Ondansetron HCl (Ondansetron Inj 2 Mg/Ml 2 Ml Vial) 4 mg IV NOW STA Stop: 04/22/24 09:28 Last Admin: 04/22/24 09:47 Dose: 4 mg Documented By: BRIT Supervising Physician Co-Signing Physician Notes Attending addendum: The patient was seen and examined in the emergency room He has been complaining of left big toe pain and swelling for about 1 month He has been taking ibuprofen 603 times daily as needed, Tylenol without much improvement He was in the ER on Monday (CT of the foot did not show any significant find ings or did not suggest gout as per as per the CT evidence His condition worsened and he is back to emergency room from doctor's office today He was given colchicine 1.2 mg and also morphine for pain control and pain is not yet reasonably controlled Denies any other significant symptoms in any other joint involvement and he has a history of left big toe involvement about few months or years back that required surgery On examination Lying in bed with acute pain in left foot Afebrile and hemodynamically stable Chestclear to auscultation bilaterally HeartS1-S2 regular no murmur Abdomenbenign Extremities no edema Left foot especially the big toe there and adjoining area showed swelling of the 1st MTP joint with redness, extreme tenderness and adjoining area of swelling Aany touch or even movement causes severe pain CNSalert, awake and oriented x 3. No focal sensory or motor deficit appreciated His admission labs and imaging studies reviewed Uric acid is minimally elevated at 7.3 which cannot include or exclude gout. Given the history and examination gout remains the most possible diagnosis He has had similar involvement left great toe and that required surgical manipulation Will continue with colchicine for now and will need suppressive and proper prophylactic medications down the line Orthopedic evaluation of possible aspiration and definitive diagnosis and further management Reviewed the assessment and plan as outlined above by Melissa Lazar PA-C and take the full responsibility of the Patient Dr Alana Maldonado
[2024-04-22] MEDS ORDERED: MoRPHine SULFATE 4 MG/ML 1 ML CARP\\VIAL IV PRN (15:22)
[2024-04-22] MEDS ORDERED: methylPREDNISolone 125 MG/2 ML VIAL IV STA (15:25)
[2024-04-22] MEDS: oxyCODONE HCL IR 5 MG TAB (IMMEDIATE RELEASE) PO PRN (16:03)
[2024-04-22] MEDS: methylPREDNISolone 40 MG in SYRINGE 0 ML IV STA (16:06)
[2024-04-22] MEDS: ACETAMINOPHEN 1,000 MG/100 ML VIAL IV SCH (16:52)
[2024-04-22] MEDS: MoRPHine SULFATE 4 MG/ML 1 ML CARP\\VIAL IV PRN (17:26)
[2024-04-22] MEDS: KETOROLAC 30 MG/ML VIAL IV ONE (17:34)
[2024-04-22] MEDS ORDERED: LIDOCAINE 1% INFIL PRN (17:56)
--- NOTE | 2024-04-22 18:07 | Orthopedic Consultation ---
Date of Consultation April 22, 2024 Assessment & Plan (1) Acute pain of left foot: White count normal. Afebrile. Sed rate and C-reactive protein within normal limits. Uric acid is marginally elevated. I think given the history and findings that this is gout. Why he has not responded to the previous treatment is not clear. He just got several doses of colchicine today and hopefully that will help but he has not noted any improvement. Lyme test was negative. His urinalysis is abnormal however he denies any urinary symptoms. Infection is a remote and I think unlikely possibility. He could continue with the colchicine treatment and see if that helps. Another possibility is we could aspirate the big toe and see if we can get any diagnostic material to analyze for gout or infection. He agrees to proceed and I have offered to anesthetize the toe prior to the injection and he agrees to proceed with that. Informed consent was obtained. I marked the site as the left big toe. I performed a preprocedural timeout. This was all witnessed by the nurse. I first anesthetized the big toe using a digital block with 10 cc of 1% plain lidocaine. After adequate analgesia the patient demonstrated the ability to flex and extend the IP joint of the left big toe. I palpated some mild fluc tuance on the medial side of the toe where the erythema was. I prepped with alcohol and then introduced an 18-gauge needle into that area and into the MTP joint. I got a fraction of the cc of blood along with some thick pasty material consistent grossly with gout. Did not look grossly purulent. Pressure was held. This was then sent for Gram stain aerobic and anaerobic culture and crystal analysis. There was not enough fluid to send for cell count with differential. I only obtained perhaps a millimeter or less. History of Present Illness Attending Physician: Kevin Maldonado MD History of Present Illness Patient is a 48-year-old male who was admitted with severe left big toe pain. Over the past 5 weeks he has developed progressively worsening pain in the left big toe. It became acutely worse on Monday with 10 out of 10 pain. He has been seen previously in the ER. He has had a CT scan done. He was also placed on prednisone for what he believes was approximately 10 days which also did not help. There is not history of an injury. It hurts to move or touch. There is redness and swelling. He cannot even wear a sock. Anti-inflammatories and pain pills also have not helped. The pain involves the whole left big toe area. Over the past 15+ years he has had 3 or 4 similar events in the right big toe which have been treated as gout although he has not been formally diagnosed with gout. He had the right big toe aspirated years ago and it was nondiagnostic per his report. These episodes in the right big toe have responded to prednisone. He had 1 recently back in the summer. He was prescribed allopurinol but did not take it because the right foot got better. He is known to have elevated uric acid. Back in 2020 it was 8.0. Currently 7.3. Allergies Allergy/AdvReac Type Severity Reaction Status Date / Time rofecoxib Allergy Severe THROAT Verified 10/25/23 08:21 SWELLS ketorolac AdvReac Mild NAUSEA, Verified 10/25/23 08:21 VOMITING Home Medications Medication Instructions Recorded Confirmed Type oxycodone 5 mg tablet 5 mg PO Q4H PRN Pain 04/22/24 04/22/24 History Patient History Medical History (Updated 04/22/24 @ 12:30 by Montserrat Lazar PA-C) Nephrolithiasis Hyperuricemia History of COVID-19 DX'D EARLY 07/2020 DR HOOD'S OFFICE [facility]-FATIGUE, SOB, SLIGHT FEVER-RECOVERED AT HOME-SYNPTOMS RESOLVED Sleep apnea CPAP Hyperlipidemia HX BORDERLINE-VOLUNTARY WT LOSS 60 LBS OVER PAST 6 MONTHS Undiagnosed cardiac murmurs PALPITATIONS NO CARDIOLOGY Panic disorder Hypogonadism in male EMIL (generalized anxiety disorder) Recurrent major depression in full remission Surgical History (Updated 04/22/24 @ 12:30 by Montserrat Lazar PA-C) Status post arthroscopy of knee Right and Left knee History of anesthesia reaction GETS AGGRESSIVE WAKING UP-MOVES AROUND ALOT History of lithotripsy History of removal of testicle Left testicle removed S/P INJURY Family History Father Diabetes Heart disease Hypertension Kidney stones Other COPD (chronic obstructive pulmonary disease) Cancer Myocardial infarction Social History Smoking Status: Never smoker Tobacco Type: Cigarettes Second Hand Exposure: Yes; Do You Dip or Chew Tobacco: Yes (1 CAN PER 2 DAYS); Hx Alcohol Use: Yes Alcohol type: hard liquor Hx Substance Use: No Preferred Language: Upper Sorbian Communication Ability: Effective Assistant Professor Of Communication Required: No Beliefs That Will Affect Care: None marital status: Current Living Situation: Spouse current occupational status: employed 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 He has no significant kidney problems. He has had no infections or dysuria. Physical Exam Physical Exam: There is mild to moderate swelling of the left first MTP joint with erythema focused around the medial aspect of the joint. DP pulse is not palpable but capillary refills less than 2 seconds throughout all of the toes. Sensation is grossly intact to light touch. PT pulses 1+. He has mild limitation of ankle movement secondary to toe pain but 5 out of 5 strength. He can wiggle the lesser toes and he can slightly flex and extend the big toe but this causes a significant increase in pain. Plantarly the toe looks unremarkable. There are no open wounds. He has a mild bunion deformity. He can activate big toe extension and flexion. There is significant tenderness from the MTP joint out to the IP joint. Results & Data Vital Signs (Past 12 Hours) Vital Signs Temp Pulse Pulse Pulse Resp BP BP 04/22/24 15:41 04/22/24 15:09 36.3 C L 58 L 16 04/22/24 14:30 56 L 14 130/80 04/22/24 14:00 53 L 13 130/89 04/22/24 13:31 57 L 14 130/81 04/22/24 13:00 52 L 13 126/87 04/22/24 12:30 54 L 18 127/81 04/22/24 12:30 62 16 127/81 04/22/24 11:01 60 14 143/98 H 04/22/24 10:30 58 L 13 119/65 04/22/24 09:58 65 04/22/24 09:07 36.3 C L 68 20 169/106 H BP Pulse Ox O2 Del Method O2 Flow Rate 04/22/24 15:41 Room Air 04/22/24 15:09 157/92 H 98 Room Air 04/22/24 14:30 99 Nasal Cannula 2 04/22/24 14:00 100 Nasal Cannula 2 04/22/24 13:31 100 Nasal Cannula 2 04/22/24 13:00 100 Nasal Cannula 2 04/22/24 12:30 100 Nasal Cannula 2 04/22/24 12:30 99 Nasal Cannula 2 04/22/24 11:01 99 Nasal Cannula 2 04/22/24 10:30 99 Nasal Cannula 2 04/22/24 09:58 04/22/24 09:07 99 Room Air Laboratory Results Laboratory Results WBC 10.69 K/ul (4.8-10.8) 04/22/24 09:35 RBC 5.43 M/uL (4.70-6.10) 04/22/24 09:35 Hgb 15.1 g/dl (14.0-18.0) 04/22/24 09:35 Hct 46.4 % (42.0-52.0) 04/22/24 09:35 MCV 85.5 fL (80.0-100.0) 04/22/24 09:35 MCH 27.8 pg (25.0-34.0) 04/22/24 09:35 MCHC 32.5 g/dL (32.0-36.0) 04/22/24 09:35 RDW Std Deviation 41.6 fL (36.4-46.3) 04/22/24 09:35 RDW Coeff of Tiffany 13.3 % (11.5-14.5) 04/22/24 09:35 Plt Count 218 K/uL (130-400) 04/22/24 09:35 MPV 11.3 fL (9.4-12.4) 04/22/24 09:35 Immature Gran % (Auto) 2.2 % 04/22/24 09:35 Neut % (Auto) 63.8 % 04/22/24 09:35 Lymph % (Auto) 22.2 % 04/22/24 09:35 [place] % (Auto) 8.0 % 04/22/24 09:35 Eos % (Auto) 3.3 % 04/22/24 09:35 Baso % (Auto) 0.5 % 04/22/24 09:35 Neut # (Auto) 6.83 K/uL (1.40-6.50) H 04/22/24 09:35 Lymph # (Auto) 2.37 K/uL (1.20-3.40) 04/22/24 09:35 [place] # (Auto) 0.86 K/uL (0.11-0.59) H 04/22/24 09:35 Eos # (Auto) 0.35 K/uL (0.00-0.50) 04/22/24 09:35 Baso # (Auto) 0.05 K/uL (0.00-0.20) 04/22/24 09:35 Immature Gran # (Auto) 0.23 K/uL (0.01-0.20) H 04/22/24 09:35 ESR 10 mm/hr (0-20) 04/22/24 09:35 Sodium 140 mmol/L (136-145) 04/22/24 09:35 Potassium 4.3 mmol/L (3.5-5.1) 04/22/24 09:35 Chloride 105 mmol/L (98-107) 04/22/24 09:35 Carbon Dioxide 30 mmol/L (21-32) 04/22/24 09:35 Anion Gap 5 (3-11) 04/22/24 09:35 BUN 25 mg/dl (6-23) H 04/22/24 09:35 Creatinine 1.01 mg/dl (0.6-1.4) 04/22/24 09:35 Est Cr Clr Drug Dosing 106.5 ml/min 04/22/24 09:35 eGFR 90.60 04/22/24 09:35 BUN/Creatinine Ratio 24.8 (10-20) H 04/22/24 09:35 Glucose 92 mg/dl (70-99(Fasting)) 04/22/24 09:35 Uric Acid 7.3 mg/dl (2.6-7.2) H 04/22/24 09:35 Calcium 8.9 mg/dl (8.6-10.3) 04/22/24 09:35 Total Bilirubin 0.6 mg/dl (0.2-1.0) 04/22/24 09:35 AST 12 U/L (13-39) L 04/22/24 09:35 ALT 8 U/L (7-52) 04/22/24 09:35 Alkaline Phosphatase 37 U/L (34-104) 04/22/24 09:35 C-Reactive Protein < 0.50 mg/dl (0-0.5) 04/22/24 09:35 Total Protein 6.4 gm/dl (6.0-8.3) 04/22/24 09:35 Albumin 3.7 gm/dl (3.4-5.0) 04/22/24 09:35 Globulin 2.7 gm/dl (2.5-4.0) 04/22/24 09:35 Albumin/Globulin Ratio 1.4 (0.9-2) 04/22/24 09:35 Urine Color Yellow 04/22/24 10:32 Urine Appearance Clear (Clear) 04/22/24 10:32 Urine pH 6.0 (4.5-7.5) 04/22/24 10:32 Ur Specific [place] 1.019 (1.000-1.030) 04/22/24 10:32 Urine Protein Trace (Negative) H 04/22/24 10:32 Urine Glucose (UA) Negative (Negative) 04/22/24 10:32 Urine Ketones Negative (Negative) 04/22/24 10:32 Urine Blood 1+ (Negative) H 04/22/24 10:32 Urine Nitrite Negative (Negative) 04/22/24 10:32 Urine Bilirubin Negative (Negative) 04/22/24 10:32 Urine Urobilinogen Negative (Negative) 04/22/24 10:32 Ur Leukocyte Esterase 1+ (Negative) H 04/22/24 10:32 Urine WBC (Auto) 11-20 /hpf (0-5) H 04/22/24 10:32 Urine RBC (Auto) 6-10 /hpf (0-2) H 04/22/24 10:32 U Hyaline Cast (Auto) 3-5 /lpf (0-2) H 04/22/24 10:32 U Epithel Cells (Auto) 0-2 /hpf (0-2) 04/22/24 10:32 Urine Bacteria (Auto) None Seen (None Seen) 04/22/24 10:32 Lyme Disease Screen Negative (Negative) 04/22/24 09:[address] scan shows effusion involving the joint and a benign-appearing cyst in the base of the proximal phalanx. There is no fracture. Mild arthritis. X-rays of the right foot done this summer show a benign cyst present in the proximal phalanx of the big toe there as well.
--- NOTE | 2024-04-22 19:32 | XRay Report ---
Exam(s): XR LEFT FOOT, 3+ views EXAM: XR Left Foot Complete, 3 or More Views CLINICAL HISTORY: Reason for exam: pain big toe. TECHNIQUE: Frontal, lateral and oblique views of the left foot. COMPARISON: CT 04/20/2024 FINDINGS: Bones/joints: No acute fracture or malalignment. Mild degenerative changes at the first MTP joint. Soft tissues: Soft tissue edema of the forefoot. IMPRESSION: 1. No acute fracture or malalignment. 2. Mild degenerative changes at the first MTP joint. 3. Soft tissue edema of the forefoot. Electronically signed by: Ras Shoemaker MD 04/22/24 19:31 PM
[2024-04-23] MEDS ORDERED: COLCHICINE 0.6 MG TAB PO SCH
--- OUTSIDE RECORDS SUMMARY | 2024-04-23 06:59 | External Medical Summary | Summary of Care ---
Author Name Unknown Organization [facility] Address [address] [facility] [place] [address] Phone [phone] Care Team Providers Care Electrician Supervisor Name Role Phone Sathish Valdez DO Primary Care Provider [phone] Reason for Visit * Reason Onset Date Comments NEW PATIENT PT is here with for L foot. Pt went to the ER had CT at [facility] & showed cysts in his L footPt foot is swelled and red in director digital advertising Visit: 04/20/24 Left Without Being Seen 04/22/2024 Encounter Details Date Type Department Care Team (Late st Contact Info) Description 04/22/2024 8:15 AM EST Office Visit Orthopaedics [facility] [address] [place] [address] Sharer, Katarzyna Hunt PA-C [address] [place] [id number] Left without being seen* Allergies Active Allergy Reactions Criticality Noted Date Comments Rofecoxib Edema airway High 06/09/2009 Ketorolac Tromethamine Nausea/vomiting 10/10/19 13 Rofecoxib Edema airway High 10/09/2012 documented as of this encounter (statuses as of 04/22/2024) Medications Multiple Vitamins-Minera ls (MULTIVITAMIN ADULT) TABS Take by mouth. Act blaze Fish Oil 1000 MG Oral Capsule Take 2 Capsules by mouth in the morning. Active Azithromycin 250 MG Oral Tablet (Zithromax Z-Musa) Take two tablets by mouth on first day, then 1 tablet daily until gone 6 Tablet 09/06/2023 12:11 PM EDT 4 Active Additional Information Patient not taking.Reported on 12/01/2023 Naproxen 500 MG Oral Tablet (Naprosyn) take 1 tablet (500 mg) orally every 12 hours As Needed for pain 20 Tablet 10/25/2023 9:05 AM EDT 4 Active amLODIPine Besylate 10 MG Oral Tablet (Norvasc)Indica tions:HTN, goal below 140/90 Take 1 Tablet by mouth in the morning. 30 Tablet 11 01/03/2024 4:12 PM EDT 4 Active Allopurinol 100 MG Oral Tablet (Zyloprim)Indic ations:Acute idiopathic gout involving toe of right foot Take 1 Tablet by mouth in the morning. 30 Tablet 11 12/01/2023 10:06 AM EDT 4 Active predniSONE 20 MG Oral Tablet (Deltasone)Kiara cations:Acute idiopathic gout involving toe of right foot Take 1 tablet by mouth 3 times a day for 3 days, then 1 tab 2 times a day for 3 days, then 1 tab daily for 3 days 18 Tablet 12/01/2023 10:06 AM EDT 4 Active Venlafaxine HCl ER 37.5 MG Oral Capsule Extended Release 24 Hour (Effexor XR) Take 1 Capsule by mouth in the morning. Do not cut, crush or chew. 30 Capsule 5 01/03/2024 4:12 PM EDT 4 Active predniSONE 20 MG Oral Tablet (Deltasone) Take 1 tablet by mouth twice a day for 7 days. 14 Tablet 04/16/2024 11:09 AM EST 4 Active documented as of this encounter (statuses as of 04/22/2024) Active Problems Problem Noted Date Diagnosed Date Recurrent major depressive disorder, in full rem ission 03/09/2019 EMIL (generalized anxiety disorder) 03/09/2019 Hyperuricemia 03/09/2019 Hypogonadism male 04/10/2012 Overview (04/10/2012): 04/09--is s/p 1 testicle removal. Low T. H/O removal of testicle 04/04/2012 Overview (05/03/2012): 08/17/11 left radical orchiectomy s/p ischemic injury s/p heavy lifting at work. Gout Overview (06/09/2009): R great toe, multiple episodes documented as of this encounter (statuses as of 04/22/2024) Resolved Problems Problem Noted Date Diagnosed Date Resolved Date Screening for thyroid disorder 05/14/2014 03/09/2019 Low testosterone 10/09/2012 03/09/2019 H/O unilateral orchiectomy 10/09/2012 1 Nephrolithiasis 05/03/2012 03/09/2019 Overview (05/03/2012): 10/07-left ureter lithotripsy [facility] Tinea corporis 04/03/2012 03/09/2019 Overview (04/04/2012): 04/09 trial ketoconazole cream Malaise and fatigue 04/03/2012 03/09/20 19 Adjustment disorder with depressed mood 06/09/2009 03/09/2019 Anxiety state 06/09/2009 03/09/2019 Panic disorder 06/09/2009 03/09/2019 Family history of ischemic heart disease 06/09/2009 03/09/2019 Multiple joint pain 03/09/20 19 documented as of this encounter (statuses as of 04/22/2024) Immunizations Name Administration Dates Next Due Covid-19 Ad26, Single Dose (Evangelist/J&J) 021,09/26/2020 Pneumococcal Polysaccharide PPV23 (Pneumovax) Seasonal Influenza, PF, 6 M & above, IM , (FluLaval or Fluzone) 03/09/2019 TDAP (age 10 and older)(Boostrix) 06/07/2015 TDAP, Age 7 and older, IM (Adacel) 01/08/2010 documented as of this encounter Social History Tobacco Use Types Packs/Day Years Used Date Smoking Tobacco: Never Smokeless Tobacco: Former Chew Alcohol Use Standard Drinks/Week Comments Yes 0 (1 standard drink = 0.6 oz pur e alcohol) occ PHQ-2 Answer Date Recorded PHQ-2 Score 0 06/07/2018 Hunger Vital Sign Answer Date Recorded Within the past 12 months, y ou worried that your food would run out before you got the money to buy more. Never true 04/09/20 24 Within the past 12 months, t he food you bought just didn't last and you didn't have money to get more. Never true 04/09/2024 Childcare Answer Date Recorded Do you feel overwhelmed with taking care of a child, family member or friend? No 04/09/2024 Does your family need help f inding childcare? (Household - for ages 0-17 years) Not on file 04/09/2024 Clothing Answer Date Recorded Have you been unable to get clothing when it was really needed? No 04/09/2024 Is your family able to get c lothes or diapers when needed? (Household - for ages 0-17 years) Not on file 04/09/2024 Personal Safety Answer Date Recorded Do you feel unsafe or have concerns for your saf ety? No 04/09/2024 Do you have concerns for you r family's safety? (Household - for ages 0-17 years) Not on file 04/09/2024 Utilities Answer Date Recorded Do you have trouble paying y our heating, water, or electric bill? No 04/09/2024 Is your family able to pay t he heat, water, or electric bill? (Household - for ages 0-17 years) Not on file 04/09/2024 Does your family have access to good internet? (Household - for ages 0-17 years) Not on file 04/09/2024 Employment Status Answer Date Recorded Are you unemployed or without regular income? No 04/09/2024 Does the household have a re gular source of income? (Household - for ages 0-17 years) Not on file 04/09/2024 Social Connections Answer Date Recorded How often do you feel lonely or isolated from th ose around you? Never 04/09/2024 Financial Resource Strain Answer Date R ecorded Do you have any trouble payi ng for your medications, or do you think you might in the future? No 04/09/2024 Does your family have troubl e paying for medicine? (Household - for ages 0-17 years) Not on file 04/09/2024 Transportation Needs Answer Date Record ed READ ONLY Do you have troubl e getting a ride to medical visits or work? Never True 04/09/2024 Does your family have a hard time getting a ride to doctors visits? (Household - for ages 0-17 years) Not on file 04/09/2024 Has lack of transportation k ept you from medical appointments, meetings, work, or from getting things needed for daily living? Check all that apply. No 04/09/2024 Do you (or your family) have trouble finding or paying for a ride (transportation)? (Household - for ages 0-17 years) Not on file 04/09/2024 Housing Stability Answer Date Recorded Do you currently live in a s helter or have no steady place to sleep at night? No 04/09/2024 READ ONLY Do you think you a re at risk of becoming homeless? No 04/09/2024 Does your family worry about paying for your home or becoming homeless? (Household - for ages 0-17 years) Not on file 1 06/09/2023 Are you homeless or worried that you might be in the future? No 04/09/2024 Are you (or your family) emily eless or worried that you might be in the future? (Household - for ages 0-17 years) Not on file Food Insecurity Answer Date Recorded Do you need food for this week? No 04/09/2024 Are you able to get enough f ood for your family? (Household - for ages 0-17 years) Not on file 04/09/2024 Does your family need food t his week? (Household - for ages 0-17 years) Not on file 04/09/2024 Do you always have enough fo od for your family? 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 While obtaining a history patient became increasingly anxious and stated he was in severe pain.. He stated he has seen multiple providers without relief of his pain. Patient then left without being seen by the provider. He prefers to return to the emergency department. documented in this encounter Nursing Notes * Jhon Crisostomo CMA - 04/22/2024 8:13 AM EST PT is here with for L foot. Pt went to the ER had CT at [facility] & showed cysts in his L foot Pt foot is swelled and red in color ER Visit: 04/20/24 documented in this encounter Plan of Treatment Upcoming Encounters Date Type Department Care Team (Late st Contact Info) Description 06/19/2024 8:00 AM EST Office Visit Family Practice [facility] [address] [facility] [place], [place] [address] Sathish Valdez, [address] [facility] [place], [place] [address] Scheduled Procedures Name Priority Associated Diagnoses Date/Ti me COLONOSCOPY FLEXIBLE PROXIMA L DIAGNOSTIC Recall History of colonic polyps Health Maintenance Due Date Last Done Comments HIV Screening 1988 Hepatitis C Screening 1991 Hepatitis B Vaccine (1 of 3 - 19+ 3-dose series) 1992 Cologuard 2018 Fecal Occult Blood Test 2018 Sigmoidoscopy 2018 Depression Monitoring 06/07/2019 06/07/2018 Zoster Vaccines (1 of 2) 2023 COVID-19 Vaccine ( - 2023- season) 2024 05/18/2021, 09/26/2020 Influenza Vaccine (FLU shot) (#1) 2024 03/09/2019 Diabetes Screening 05/11/2024 05/11/2021, 0 06/20/2020, 07/21/2018, Additional history exists DTap/Tdap Vaccines (3 - Td or Tdap) 06/07/2025 06/07/2015, 01/08/2010 Lipid Panel 06/20/2025 06/20/2020, 06/30, 05/10/2014, Additional history exists Colonoscopy 09/20/2028 09/21/2023, 09/21/2023 Colorectal Cancer Screening 09/20/2028 Pneumococcal Vaccine: Pediatrics (0 to 5 Years) and At-Risk Patients (6 to 64 Years) Aged Out 01/27/1997 No longer eligible based on patient's age to complete this topic HPV (Gardasil) Vaccine Aged Out No lo nger eligible based on patient's age to complete this topic MENINGOCOCCAL (MENACTRA/MENVEO) Aged Out No longer eligible based on patient's age to complete this topic documented as of this encounter Medical Devices Not on filedocumented as of this encounter Visit Diagnoses Diagnosis Left without being seen- Primary documented in this encounter Care Teams Electrician Supervisor Relationship Specialty Start Date End Date Sathish Valdez DO [address] [place] [address] PCP - General Family Medicine 07/21/18 documented as of this encounter
[2024-04-23 07:25] VITALS: BP 126/80; PULSE 71; RESP 18; TEMP 98.2; O2SAT 96
[2024-04-23] MEDS: ENOXAPARIN INJ 40 MG/0.4 ML SYR SQ SCH (07:54)
[2024-04-23] MEDS: COLCHICINE 0.6 MG TAB PO SCH (07:54)
[2024-04-23 07:58] LABS: Basophils # (auto) 0.03 K/uL (0.00-0.20); Basophils % (auto) 0.2 %; Eosinophils # (auto) 0.11 K/uL (0.00-0.50); Eosinophils % (auto) 0.9 %; Hematocrit (blood only) 44.3 % (42.0-52.0); Hemoglobin 14.7 g/dl (14.0-18.0); Immature Granulocytes # (auto) 0.15 K/uL (0.01-0.20); Immature Granulocytes % (auto) 1.2 %; Lymphocytes # (auto) 1.73 K/uL (1.20-3.40); Lymphocytes % (auto) 14.1 %; Mean Corpuscular Hgb Conc 33.2 g/dL (32.0-36.0); Mean Corpuscular Volume 84.4 fL (80.0-100.0); Monocytes # (auto) 0.65 K/uL (0.11-0.59); Monocytes % (auto) 5.3 %; Neutrophils # (auto) 9.62 K/uL (1.40-6.50); Neutrophils % (auto) 78.3 %; Platelet Count 244 K/uL (130-400); RDW Coefficient of Variation 12.6 % (11.5-14.5); RDW Standard Deviation 38.9 fL (36.4-46.3); Red Blood Count 5.25 M/uL (4.70-6.10); White Blood Count 12.29 K/ul (4.8-10.8)
[2024-04-23 08:08] LABS: BUN Creatinine Ratio 18.6 (10-20); Calcium 9.2 mg/dl (8.6-10.3); Creatinine Clr Calc Pharmacy 125.1 ml/min; Potassium 3.9 mmol/L (3.5-5.1)
--- NOTE | 2024-04-23 09:25 | Orthopedic Progress Note ---
Date of Service April 23, 2024 Assessment & Plan (1) Acute pain of left foot: Plan: Gram stain shows no WBCs, and no organisms. Culture pending. Crystal analysis pending. Patient reporting improvement in focal pain, range of motion, and swelling this morning. Endorses some tingling across the plantar forefoot and into the first toe but no obvious sensory deficits are appreciated. Could be from recent swelling. He has a mild amount of increased soft tissue swelling diffusely into the forefoot. Very faint erythema seems to be more diffuse across the dorsal forefoot compared to skin marking applied yesterday. No lymphangitis appreciated. Does not look like obvious cellulitis though will continue to monitor. White blood cell count has slightly increased from initial (10.69) to 12.29 today. Patient received a dose of steroids yesterday. Will continue to monitor. Urine culture pending. Continue current regimen, await cultures and crystal analysis. Will discuss with Dr. Plummer. Admission and Anticipated Discharge Date Admission Date: April 22, 2024 Subjective Patient seen resting in bed today. He reports that the focal swelling on the inside of the left foot has improved today but he notes a bit more swelling across the top of his foot above his toes and on the same location on the bottom of the foot. It's a little sore in this portion of the foot but not excruciating. He has not had any drainage. He is now able to move his big toe a little bit before it starts to hurt which is improved from yesterday. He has not had any fevers or chills. No calf pain or swelling. Endorses a little bit of tingling across the bottom of his foot and from the tip of his big toe just above the joint that is swollen on his foot. He denies any numbness though. Physical Exam Constitutional: Resting comfortably in no distress. Pleasant. Cardiovascular: Left PT pulse 1+. DP pulse not palpable. Musculoskeletal: Left lower extremity: Soft tissue swelling is present about the forefoot most pronounced at the medial first MTP. There is focal tenderness over the medial first MTP. Minimal tenderness noted to the remainder of the plantar and dorsal forefoot. Able to initiate passive range of motion of the MTP and IPJ of the great toe without pain; increasing the range of motion in this distrubution causes pain. Patient able to actively flex and extend at the IPJ and MTP, though this does cause discomfort once he has initiated movement. There is no drainage or discharge. No fluctuance. No focal tenderness in the remainder of the toes. No pain elicited with active or passive range of motion of the remainder of the toes. No calf tenderness. Strength 5/5 with ankle plantarflexion and dorsiflexion. No pain elicited in the ankle with range of motion. Skin: Left foot: Faint erythema across the dorsum of the forefoot. There is no lymphatic streaking. Neurologic: No sensory deficits to light touch in bilateral toes Results & Data Vital Signs (Past 12 Hours) Vital Signs Temp Pulse Resp BP Pulse Ox O2 Del Method 04/23/24 08:01 Room Air 04/23/24 07:23 98.2 F 71 18 126/80 96 Room Air Laboratory Results 04/22/24 18:40 Gram Stain - Final Toe,Left Aerobic and Anaerobic Culture - Pending 04/22/24 10:32 Urine Culture - Pending Urine,Clean Catch 04/23/24 04/22/24 04/22/24 07:34 18:40 10:32 WBC 12.29 H RBC 5.25 Hgb 14.7 Hct 44.3 MCV 84.4 MCH 28.0 MCHC 33.2 RDW Std Deviation 38.9 RDW Coeff of Tiffany 12.6 Plt Count 244 MPV 11.0 Immature Gran % (Auto) 1.2 Neut % (Auto) 78.3 Lymph % (Auto) 14.1 Frio % (Auto) 5.3 Eos % (Auto) 0.9 Baso % (Auto) 0.2 Neut # (Auto) 9.62 H Lymph # (Auto) 1.73 Frio # (Auto) 0.65 H Eos # (Auto) 0.11 Baso # (Auto) 0.03 Immature Gran # (Auto) 0.15 ESR Sodium 140 Potassium 3.9 Chloride 103 Carbon Dioxide 33 H Anion Gap 4 BUN 16 Creatinine 0.86 Est Cr Clr Drug Dosing 125.1 eGFR 105.49 BUN/Creatinine Ratio 18.6 Glucose 164 H Uric Acid Calcium 9.2 Total Bilirubin AST ALT Alkaline Phosphatase C-Reactive Protein Total Protein Albumin Globulin Albumin/Globulin Ratio Urine Color Yellow Urine Appearance Clear Urine pH 6.0 Ur Specific Tol[place] 1.019 Urine Protein Trace H Urine Glucose (UA) Negative Urine Ketones Negative Urine Blood 1+ H Urine Nitrite Negative Urine Bilirubin Negative Urine Urobilinogen Negative Ur Leukocyte Esterase 1+ H Urine WBC (Auto) 11-20 H Urine RBC (Auto) 6-10 H U Hyaline Cast (Auto) 3-5 H U Epithel Cells (Auto) 0-2 Urine Bacteria (Auto) None Seen Synovial Crystals Lyme Disease Screen 04/22/24 09:35 WBC 10.69 RBC 5.43 Hgb 15.1 Hct 46.4 MCV 85.5 MCH 27.8 MCHC 32.5 RDW Std Deviation 41.6 RDW Coeff of Tiffany 13.3 Plt Count 218 MPV 11.3 Immature Gran % (Auto) 2.2 Neut % (Auto) 63.8 Lymph % (Auto) 22.2 Frio % (Auto) 8.0 Eos % (Auto) 3.3 Baso % (Auto) 0.5 Neut # (Auto) 6.83 H Lymph # (Auto) 2.37 Frio # (Auto) 0.86 H Eos # (Auto) 0.35 Baso # (Auto) 0.05 Immature Gran # (Auto) 0.23 H ESR 10 Sodium 140 Potassium 4.3 Chloride 105 Carbon Dioxide 30 Anion Gap 5 BUN 25 H Creatinine 1.01 Est Cr Clr Drug Dosing 106.5 eGFR 90.60 BUN/Creatinine Ratio 24.8 H Glucose 92 Uric Acid 7.3 H Calcium 8.9 Total Bilirubin 0.6 AST 12 L ALT 8 Alkaline Phosphatase 37 C-Reactive Protein < 0.50 Total Protein 6.4 Albumin 3.7 Globulin 2.7 Albumin/Globulin Ratio 1.4 Urine Color Urine Appearance Urine pH Ur Specific [place] Urine Protein Urine Glucose (UA) Urine Ketones Urine Blood Urine Nitrite Urine Bilirubin Urine Urobilinogen Ur Leukocyte Esterase Urine WBC (Auto) Urine RBC (Auto) U Hyaline Cast (Auto) U Epithel Cells (Auto) Urine Bacteria (Auto) Synovial Crystals Lyme Disease Screen Negative
--- NOTE | 2024-04-23 11:49 | Discharge Summary ---
Discharge Summary Date of Service April 23, 2024 Principal Dx & Hospital Course #1 = Principal Diagnosis (1) Acute pain of left foot: (2) Subchondral bone cyst: (3) Obstructive sleep apnea: (4) EMIL (generalized anxiety disorder): Plan This is a 48 y/o male with MARINO on CPAP, EMIL, history of episodic great toe pain thought secondary to gout, and other history as below who presents to the ED today with worsening pain in the left foot. Pt reports similar symptoms previously and has been told he likely has gout. Review of outpatient records show PCP previously prescribed allopurinol after last flare in the right foot in November but pt is not currently taking this and is unsure as to why. There is a reported aspiration that was negative for crystalline arthropathy several years ago, outpatient labs have been negative for rheumatoid factor. However, uric acid appears to have been persistently mild elevated back to 2017. Pt's pain with current episode has been uncontrolled with oxycodone, acetaminophen, and ibuprofen and did not improve with recent course of prednisone so he was referred for admission for further evaluation and pain control. Foot Xr revealed subchondral bone cyst and mild first MTP arthritic changes, but no erosive changes. He was seen and evaluated by orthopedics who performed a bedside joint aspiration which was positive for crystals and gout. He was started on colchicine 0.6mg bid which improved his sx. His Uric acid was mildly elevated at 7.3. On day of discharge his symptoms are greatly improving. He was seen and evaluated by orthopedics who recommended weightbearing as tolerated with a postoperative shoe. The dietitian is going to visit him prior to discharge to assist in dietary restrictions for gout as well as he will be provided patient occasion handouts. He is otherwise hemodynamically stable and tolerating diet. Notes For Next Care Provider Pt had L great toe joint aspirated which revealed acute gout. Started on colchicine twice daily. Uric Acid is 7.3. Recommend initiating allopurinol as an outpatient. Pt fasting blood sugar was elevated and recommend checking a A1C as outpatient. Medication Changes From Visit Colchicine 0.6mg by mouth twice daily. Please continue this during your acute flare until your follow up with your primary care provider. Admission HPI Per Admitting Provider This is a 48 y/o male with MARINO on CPAP, EMIL, history of episodic great toe pain thought secondary to gout, and other history as below who presents to the ED today with worsening pain in the left foot. He reports that the current episode of pain started in mid-February - no specific inciting event. Pain is localized to the base of the 1st MTP joint but has radiated to 1st toe and to mid-foot at times. Pain is constant and sharp, has gradually increased in severity. The area is now swollen and exquisitely tender even to touch. Seen at [facility] ED one week ago and prescribed prednisone, seen in the ED at [facility] two days ago and prescribed oxycodone. However, pain continues to worsen with only brief partial relief with the medications. Pt is currently taking oxycodone 5 mg every 4 hours, acetaminophen 1000 mg every 8 hours alternating with ibuprofen 800 mg every 8 hours. Pt denies any prior injury to the area. Does not recall any rashes or open wounds. 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 He has been using crutches to ambulate for the last two days and is now having some pain in this knee and hip on the affected side because of how he is walking. He denies fevers, chiills, sweats, recent illness. No history of Lyme disease. Admission Exam Per Admitting Provider General: awake, alert, NAD HEENT: no scleral icterus, moist oral mucosa Neck: supple, trachea midline Heart: RRR Lungs: CTA bilaterally Abdomen: soft, +BS Extremities: distal pulses intact and equal, left foot with tenderness from 1st MTP joint to tip of 1st toe and long medial foot to mid-foot area with associat ed swelling, mild erythema, no open wounds or ecchymosis noted Neurologic: OX3, moving all extremities, no focal deficits Discharge Exam Gen: WD/WN, NAD, A&O x3 HEENT: Normocephalic, atraumatic, conjunctivae moist, sclerae anicteric, mucous membranes moist. Lung: Clear to Auscultation bilaterally, no wheezes/rales/rhonchi Heart: Regular rate, regular rhythm, no murmurs, rubs, or gallops Abdomen: Soft, NT, ND +BS x 4 Extremities: L foot 1st MTP with edema, small amount of erythema, but no warmth, base of 1st MTP with erythema and mild tenderness to palpation, dorsal edema, no ecchymosis, good range of motion to L great toe. Skin: Warm, no rash, negative turgor. Updated Medication List Medication Instructions Recorded Confirmed Type oxycodone 5 mg tablet 5 mg PO Q4H PRN Pain 04/22/24 04/22/24 History colchicine 0.6 mg tablet (Colcrys) 0.6 mg PO BID #60 tabs 04/23/24 Rx Hospital Stay Data Consultations 04/22/24 12:19 ED Decision to Admit Stat 04/22/24 13:15 Consult Orthopedic Surgery Routine Procedures Performed Aspiration of L great toe: Informed consent was obtained. I marked the site as the left big toe. I performed a preprocedural timeout. This was all witnessed by the nurse. I first anesthetized the big toe using a digital block with 10 cc of 1% plain lidocaine. After adequate analgesia the patient demonstrated the ability to flex and extend the IP joint of the left big toe. I palpated some mild fluctuance on the medial side of the toe where the erythema was. I prepped with alcohol and then introduced an 18-gauge needle into that area and into the MTP joint. I got a fraction of the cc of blood along with some thick pasty material consistent grossly with gout. Did not look grossly purulent. Pressure was held. This was then sent for Gram stain aerobic and anaerobic culture and crystal analysis. There was not enough fluid to send for cell count with differential. I only obtained perhaps a millimeter or less. Diagnostic Imagining Performed Foot X-Ray 04/22/24 18:45 Exam(s): XR LEFT FOOT, 3+ views EXAM: XR Left Foot Complete, 3 or More Views CLINICAL HISTORY: Reason for exam: pain big toe. TECHNIQUE: Frontal, lateral and oblique views of the left foot. COMPARISON: CT 04/20/2024 FINDINGS: Bones/joints: No acute fracture or malalignment. Mild degenerative changes at the first MTP joint. Soft tissues: Soft tissue edema of the forefoot. IMPRESSION: 1. No acute fracture or malalignment. 2. Mild degenerative changes at the first MTP joint. 3. Soft tissue edema of the forefoot. Electronically signed by: Ras Shoemaker MD 04/22/24 19:31 PM Pending Results Patient Have Any Pending Studies at Discharge: Yes (Aspiration of L great toe culture, Urine culture) Discharge Instructions Given to Patient (Per Discharging Provider) MEDICATION CHANGES: Colchicine 0.6mg by mouth twice daily. Please continue this during your acute flare until your follow up with your primary care provider. SUMMARY OF TEST RESULTS: You were hospitalized due to L foot pain. You were seen and evaluated by orthopedics and underwent joint aspiration which revealed crystals concerning for gout. Uric Acid was 7.3. PENDING TEST RESULTS: Joint aspiration culture and urine culture - please have your PCP follow up these results. RECOMMENDATIONS FOR FOLLOW-UP: Please follow up with primary care provider as scheduled. I recommend discussing with your primary care provider regarding starting Allopurinol to help prevent gout flares in the future. It was noted your fasting blood sugar was elevated during your hospital stay. It is recommended you have your primary care provider check at A1C to monitor for Diabetes Mellitus. Please continue all other medications as prescribed. OTHER INSTRUCTIONS: Seek medical attention if you have: * temperature above 101 * chest pain or trouble breathing * abdominal pain, nausea, vomiting * diarrhea, dark stools or bloody stools * any unanswered questions or concerns Call 911 if symptoms are severe. Please take good care of yourself. It has been a pleasure taking care of you. Please take care of yourself. If you have any questions regarding your recent hospitalization please contact [facility] and request roya Darlingist @ [phone]. Total Time Total Time Spent Total Time Spent (In Minutes): 45 minutes Supervising Physician Co-Signing Physician Notes Patient seen and examined Agree with findings and plan as detailed by Nohemy Song PA-C I spent a total of 35 minutes coordinating, documenting and providing care for this patient excluding time spent in performance of separately billed services
[2024-04-23 11:50] LABS: Chlam trach RNA(Genit,Ureth,Ur Not Detected (NotDetected); GC(Neis gon)RNA(Genit,Ureth,Ur Not Detected (NotDetected)
--- OUTSIDE RECORDS SUMMARY | 2024-04-24 01:35 | External Medical Summary | Summary of Care ---
Author Name Unknown Organization [facility] Address [address] [place] [address] Phone [phone] Care Team Providers Care Reimbursement Counselor Name Role Phone Sathish Valdez DO Primary Care Provider [phone] Encounter Details Date Type Department Care Team (Late st Contact Info) Description 04/20/2024 Orders Only Orthopaedics [facility] [address] [place] [address] SharerKatarzyna PA-C [address] [place] [id number] Allergies Active Allergy Reactions Criticality Noted Date [...] gone 6 Tablet 09/06/2023 12:11 PM EDT Active Additional Information Patient not taking.Reported on [...] 05/03/2012 03/09/2019 Overview (05/03/2012): 10/07-left ureter lithotripsy [facility] Tinea corporis 04/03/2012 03/09/2019 Overview (04/04/2012): [...] 6:10 AM EST Sexual Orientation Straight 05/06/2023 6 :10 AM EST 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 Not on file Not on file documented as of this encounter Plan of Treatment Upcoming Encounters Date Type Department Care Team (Late st Contact Info) Description 06/19/2024 8:00 AM EST Office Visit Family [facility] [address] [place] [address] Sathish Valdez, DO [address] [place] [address] Scheduled Procedures Name Priority Associated Diagnoses Date/Ti [...] Vaccines (1 of 2) 2023 COVID-19 Vaccine (3 - 2023- season) 2024 05/18/2021, 09/26/2020 Influenza [...] Not on filedocumented as of this encounter Procedures Procedure Name Priority Date/Time Associated Diagnosis Comments RADIOLOGY EXAM - CT (IMAGES ONLY, NO REPORT) Routine 04/20/2024 8:35 PM EST documented in this encounter Results * RADIOLOGY EXAM - CT (IMAGES ONLY, NO REPORT) (04/20/2024 8:35 PM EST) 04/20/2024 8:31 PM EST Narrative Scheduling, Silent - 04/22/2024 11:43 AM EST This is an imaging study not interpreted or resulted by a [facility] or [facility] contracted radiologist. Katarzyna Hunt Sharer DORCAS RAD CT Final Res ult documented in this encounter Care Teams Reimbursement Counselor Relationship Specialty Start Date End Date Sathish Valdez DO [address] [place] [address] PCP - General Family Medicine 07/21/18 documented as of this encounter
== END 2024-04-23 14:00 | disposition home or self-care (01) ==
LOC: 3N 09:01 → ED 09:01 → SUATTDRO 13:05 → 3N 15:00